=== PATIENT | female | born 2000 | race Caucasian/White ===

== ENCOUNTER 2021-08-03 17:41 | Emergency (ER) | payer OTHER, SELFPAY ==
[2021-08-03] VITALS (7 sets, daily range): BP systolic 122–134; BP diastolic 75–80; PULSE 63–89; RESP 16–21; TEMP 36.8; O2SAT 98–100; BMI 30.7
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
[2021-08-03 18:55] LABS: COVID19 -Nasal RAPID Negative (Negative)
== END 2021-08-03 20:02 | disposition home or self-care (01) ==
PROVIDERS: Emergency Provider Emergency Medicine
DX: T59.891A Toxic effect of other specified gases, fumes and vapors, accidental (unintentional), initial encounter (principal); Z20.822 Contact with and (suspected) exposure to COVID-19; Y99.0 Civilian activity done for income or pay
CPT/HCPCS: 71046; 87635; 99281; 99283; C9803